=== PATIENT | female | born 1945 | race Caucasian/White ===

== ENCOUNTER 2015-12-03 14:00 | Outpatient (RCR) | payer MEDICARE, BC ==
[2015-12-01 14:30] VITALS: BP 156/61; PULSE 102; TEMP 97.3
[2015-12-02 14:18] VITALS: BP 137/62; PULSE 90; TEMP 98.3
[~2015-12-03] VITALS: Ht 157.5 cm; Wt 84.1 kg
[2015-12-03 11:11] VITALS: BP 157/76; PULSE 83; TEMP 98.6
[~2015-12-03 14:00] MED LIST: ARMOUR THYROID60 MG PO; CALTRATE 600 +1 TAB PO; CRANBERRY1000 MG PO; FERROUS SU325 MG/TAB PO; FOLIC ACID PO; LISINOPRIL10 MG PO; LOPRESSOR 225 MG/TAB PO; NEXIUM 20MG20 MG PO; PEPCID 20MG TAB20 MG PO; RESOURCE BENEFI1 PDR PO; TOPROL XL 50MG50 MG PO; UNABLE; VALIUM5 MG PO; VITAMIN C500 MG PO; ZANTAC 150150 MG PO; ZESTRIL 10MG10 MG PO; ZESTRIL 5MG5 MG PO; ZITHROMAX 250M250 MG PO; [UNRECOGNIZED DRUG - OTHER] PO
== END 2016-02-29 | disposition still patient (30) ==
LOC: EUO
DX: N39.0 Urinary tract infection, site not specified (principal); R82.99 Other abnormal findings in urine; Z79.2 Long term (current) use of antibiotics
CPT/HCPCS: J1580

== ENCOUNTER 2017-09-24 16:00 | Outpatient (RCR) | payer MEDICARE, BC | END 2017-09-24 16:33 | disposition home or self-care (01) | LOC: WSC 16:00 | DX: M54.5 Low back pain (principal); G89.29 Other chronic pain | CPT/HCPCS: G0283-GP; G8978-GP; G8979-GP; G8980-GP ==

== ENCOUNTER 2017-12-18 11:31 | Day surgery (SDC) | payer MEDICARE, BC ==
[~2017-12-18] VITALS: Ht 154.9 cm; Wt 90.6 kg
[2017-12-18 12:33] VITALS: BP 164/70; PULSE 91; TEMP 98.4
[2017-12-18] MEDS ORDERED: ZESTRIL 20MG TA20 MG PO (12:59)
[2017-12-18] MEDS ORDERED: ASPIRIN 81M81 MG/TA2 PO (13:00)
[2017-12-18] MEDS ORDERED: MAGNESIUM250 M1 PO (13:01)
[2017-12-18] MEDS ORDERED: LUTEIN20 M1 PO (13:01)
[2017-12-18 14:40] VITALS: BP 191/92; PULSE 82; TEMP 98.3
[2017-12-18 14:55] VITALS: BP 152/65; PULSE 86
[2017-12-18 15:10] VITALS: BP 151/63; PULSE 86
== END 2017-12-18 15:18 | disposition home or self-care (01) ==
LOC: SDCO 11:31
DX: Z12.11 Encounter for screening for malignant neoplasm of colon (principal); K57.30 Diverticulosis of large intestine without perforation or abscess without bleeding; K64.0 First degree hemorrhoids; E03.9 Hypothyroidism, unspecified; I10 Essential (primary) hypertension; M19.90 Unspecified osteoarthritis, unspecified site; Z96.651 Presence of right artificial knee joint; Z90.710 Acquired absence of both cervix and uterus; Z79.82 Long term (current) use of aspirin; Z88.1 Allergy status to other antibiotic agents; Z88.2 Allergy status to sulfonamides; Z88.8 Allergy status to other drugs, medicaments and biological substances; Z85.828 Personal history of other malignant neoplasm of skin
CPT/HCPCS: J2250; J3010

== ENCOUNTER 2020-04-27 08:31 | Inpatient (IN) | payer MEDICARE, BC ==
[~2020-04-27] VITALS: Ht 156.2 cm; Wt 93.1 kg
[~2020-04-27 08:31] MED LIST changes: +ASPIRIN 81M81 MG/TA2 PO; -CRANBERRY1000 MG PO; +CRANBERRY500 M3 PO; +LUTEIN20 M1 PO; +MAGNESIUM250 M1 PO; +ZESTRIL 20MG TA20 MG PO
[2020-05-19] VITALS (12 sets, daily range): BP systolic 115–173; BP diastolic 41–74; PULSE 93–120; TEMP 97.8–98.7
[2020-05-19] MEDS ORDERED: PROBIOTIC FORMU1 CAP PO (06:30)
[2020-05-19] MEDS ORDERED: LYSINE 500500 MG/TAB PO (06:31)
[2020-05-19] MEDS ORDERED: CALCIUM CARBON650 M2 (06:31)
[2020-05-19] MEDS ORDERED: GARLIC100 MG PO (06:32)
[2020-05-19] MEDS ORDERED: NEXIUM 20MG20 MG PO (06:33)
[2020-05-19] MEDS ORDERED: XALATAN EYE DROPS OS (06:37)
[2020-05-19] MEDS ORDERED: IRON TABLETS325 MG PO (06:53)
[2020-05-19] MEDS ORDERED: VITAMIN C500 MG PO (06:54)
[2020-05-19] MEDS ORDERED: FOLIC ACID 40400 MCG PO (06:54)
--- NOTE | 2020-05-19 20:45 | NUR ---
Pt. sitting up in bed at this time. Pt. is A&OX3, assessment complete. INT to lt. hand patent. Dressing to rt. hip CDI. Pt. denies pain or other needs. Call light within reach.
[2020-05-20 04:34] VITALS: BP 149/67; PULSE 93; TEMP 98.2
[2020-05-20 06:41] LABS: HEMATOCRIT 32.8 % (37.0-47.0); HEMOGLOBIN 10.9 g/dl (12.5-16.0)
[2020-05-20 07:45] VITALS: BP 144/50; PULSE 114; TEMP 98.2
--- NOTE | 2020-05-20 09:43 | NUR ---
GRETTA met with the patient and her , Stevenson ([phone]), to discuss discharge plan. The patient lives [place] [facility] with her . She reports independence with ADLs and has a cane and walker. The patient's PCP is Dr. Nikos Staley and she receives her medications from [facility]. She reports no difficulties obtaining her meds. The patient does not have a DPOA-HC and she was not interested in completing one while here. The patient plans to return home with her and receive outpatient PT at [facility] upon discharge. No additional needs at this time.
--- NOTE | 2020-05-20 10:15 | NUR ---
Patient alert and oriented, answers questions appropriately. See assessment. RLE incision with dressing CDI, no drainage noted. Pulses palpable to RLE, neuros intact, no c/o numbness or tingling. FWB. Post op exercises reviewed with patient. No c/o at this time.
[2020-05-20 11:55] VITALS: BP 132/53; PULSE 103; TEMP 98.2
--- NOTE | 2020-05-20 12:35 | NUR ---
First visit from the executive secretary social welfare. No needs right now
--- NOTE | 2020-05-20 13:31 | NUR ---
Discharge instructions reviewed with patient and spouse, verbalized understanding. Discharged via wheelchair to auto/home with spouse at 1334.
== END 2020-05-20 13:32 | disposition home or self-care (01) | DRG 470 ==
LOC: INPTSU 05-19 05:28 → SURG 05-19 07:30 → JCC 05-19 09:10
PROVIDERS: ADMIT Orthopaedic Surgery Sports Medicine
PROC: 0SR904A Replacement of Right Hip Joint with Ceramic on Polyethylene Synthetic Substitute, Uncemented, Open Approach (ICD-10-PCS; principal; 2020-05-19 07:30)
DX: M16.11 Unilateral primary osteoarthritis, right hip (principal); I10 Essential (primary) hypertension; M17.11 Unilateral primary osteoarthritis, right knee; F17.200 Nicotine dependence, unspecified, uncomplicated; M51.16 Intervertebral disc disorders with radiculopathy, lumbar region; M43.16 Spondylolisthesis, lumbar region; M47.26 Other spondylosis with radiculopathy, lumbar region; M41.86 Other forms of scoliosis, lumbar region; Z85.828 Personal history of other malignant neoplasm of skin; Z88.1 Allergy status to other antibiotic agents; Z88.2 Allergy status to sulfonamides; Z88.0 Allergy status to penicillin
CPT/HCPCS: C1713; C1776; J0690; J1170; J2250; J2370; J2405; J2704; J3010; J7120

== ENCOUNTER 2020-06-02 10:39 | Emergency (ER) | payer MEDICARE, BC ==
[~2020-06-02] VITALS: Ht 154.9 cm; Wt 92.3 kg
[~2020-06-02 10:39] MED LIST changes: +CALCIUM CARBON650 M2; +FOLIC ACID 40400 MCG PO; +GARLIC100 MG PO; +IRON TABLETS325 MG PO; +LYSINE 500500 MG/TAB PO; +PROBIOTIC FORMU1 CAP PO; +XALATAN EYE DROPS OS
[2020-06-02 10:59] VITALS: BP 184/70; TEMP 97.8
[2020-06-02 13:06] VITALS: PULSE 103
== END 2020-06-02 13:00 | disposition home or self-care (01) ==
LOC: COL.ER 10:39
DX: M54.5 Low back pain (principal); Z88.1 Allergy status to other antibiotic agents; Z88.2 Allergy status to sulfonamides; Z88.8 Allergy status to other drugs, medicaments and biological substances; Z90.710 Acquired absence of both cervix and uterus; Z87.891 Personal history of nicotine dependence

== ENCOUNTER → 2020-10-01 | Outpatient (CLI) | payer MEDICARE, BC | LOC: COL.RAD 09-17 08:15 | DX: N30.20 Other chronic cystitis without hematuria (principal) ==

== ENCOUNTER → 2021-12-27 | Outpatient (CLI) | payer MEDICARE, BC | LOC: COL.RAD 12-13 09:45 | DX: N30.20 Other chronic cystitis without hematuria (principal) ==